=== PATIENT | female | born 1990 | race Caucasian/White ===

== ENCOUNTER 2019-06-02 21:14 | Emergency (ER) | payer BC, MEDICAID ==
[~2019-06-02] VITALS: Ht 154.9 cm; Wt 77.3 kg
[~2019-06-02 21:14] MED LIST: CLIN-97 PO; NAPR-762 PO; NO HOME MEDS
[2019-06-02 21:15] VITALS: BP 125/76
[2019-06-02] MEDS ORDERED: amoxicillin 250mg capsule PO ONE (21:25)
[2019-06-02] MEDS ORDERED: AMOX-101 PO (21:25)
== END 2019-06-02 21:34 | disposition home or self-care (01) ==
LOC: ER 21:15
DX: J02.9 Acute pharyngitis, unspecified (principal); F17.210 Nicotine dependence, cigarettes, uncomplicated; R50.9 Fever, unspecified; Z72.89 Other problems related to lifestyle; Z88.5 Allergy status to narcotic agent; Z79.2 Long term (current) use of antibiotics; Z79.899 Other long term (current) drug therapy
CPT/HCPCS: 99283